=== PATIENT | male | born 1975 | race Caucasian/White ===

== ENCOUNTER 2021-05-23 13:37 | Emergency (ER) | payer OTHER, SELFPAY ==
[~2021-05-23] VITALS: Ht 177.8 cm; Wt 86.2 kg
[2021-05-23 13:37] VITALS: BP_SYST 113
--- NOTE | 2021-05-23 13:37 | NUR ---
BROUGHT BACK TO TENT AND TRIAGED. AWAITING ER BED AVAILABILITY
--- NOTE | 2021-05-23 13:38 | NUR ---
Pt brought by self, A&Ox4, pt presents to ER with mild SOB not relieve with Ventolin, pt states he had covid last month, O2 97%, skin pink and warm, cap refill <3, VSS, respirations even and unlabored.
--- NOTE | 2021-05-23 14:45 | NUR ---
DR HERCULES OUT TO TENT TO EVALUATE PT
[2021-05-23] MEDS ORDERED: ALBMDI INH (14:57)
[2021-05-23] MEDS ORDERED: tessalon PO (14:57)
--- NOTE | 2021-05-23 15:13 | NUR ---
Patient given written and verbal discharge instructions and verbalizes understanding. ER MD discussed with patient the results and treatment provided. Patient in stable condition. ID arm band removed. Rx of ALBUTEROL, TESSALON given. Patient educated on pain management and to follow up with PMD. Pain Scale 0/10. Opportunity for questions provided and answered. Medication side effect fact sheet provided.
== END 2021-05-23 15:13 | disposition home or self-care (01) ==
LOC: SED 13:37
DX: B34.9 Viral infection, unspecified (principal); Z20.822 Contact with and (suspected) exposure to COVID-19
CPT/HCPCS: 71045; 99284; U0003